=== PATIENT | female | born 1965 ===

== ENCOUNTER 2018-03-28 10:56 | Outpatient (CLI) | payer OTHER | END 2018-03-28 10:57 | disposition home or self-care (01) | LOC: BICMAMMO 10:56 | PROVIDERS: ATTEND Obstetrics & Gynecology | DX: Z12.31 Encounter for screening mammogram for malignant neoplasm of breast (principal); Z85.820 Personal history of malignant melanoma of skin | CPT/HCPCS: 77063; 77067 ==

== ENCOUNTER 2023-11-22 10:43 | Outpatient (CLI) | payer BC | END 2023-11-22 10:44 | disposition home or self-care (01) | LOC: BICRAD 10:43 | PROVIDERS: ATTEND Podiatrist | DX: M19.071 Primary osteoarthritis, right ankle and foot (principal) ==